=== PATIENT | male | born 1985 | race African-American/Black ===

== ENCOUNTER 2020-08-31 13:08 | Emergency (ER) | payer OTHER, SELFPAY ==
[2020-08-31] MEDS ORDERED: Ketorolac Tromethamine 30 MG/ML VIAL ONE (13:51)
== END 2020-08-31 15:25 | disposition home or self-care (01) ==
LOC: CSHERS 13:08
DX: S16.1XXA Strain of muscle, fascia and tendon at neck level, initial encounter (principal); S39.012A Strain of muscle, fascia and tendon of lower back, initial encounter; Y35.891A Legal intervention involving other specified means, law enforcement official injured, initial encounter
CPT/HCPCS: 70450; 71045; 72125; 72131; 96372; J1885